=== PATIENT | male | born 1995 | race Hispanic/Latino ===

== ENCOUNTER 2019-04-18 14:52 | Emergency (ER) | payer BC, OTHER ==
[2019-04-18] MEDS ORDERED: SODIUM CHLORIDE 0.9% 1000ML 1,000 ML IV ONE ×2 (15:10→16:46)
[2019-04-18] MEDS ORDERED: M.V.I. IV [ADULT] 10 ML VIAL IV ONE (15:11)
[2019-04-18] MEDS ORDERED: THIAMINE HCL 100 MG/ML 2ML VIAL ONE (15:11)
[2019-04-18] MEDS ORDERED: FOLIC ACID 5 MG/ML 10 ML VIAL ONE (15:16)
[2019-04-18] MEDS ORDERED: ONDANSETRON HCL 4 MG/2 ML VIAL ONE (15:22)
[2019-04-18 15:25] LABS: EOSINOPHILS % (AUTO) 3.6 % (0.0-8.0); HEMATOCRIT 45.8 % (42-54); LYMPHOCYTES % (AUTO) 36.4 % (21.0-51.0); MEAN CORPUSCULAR HEMOGLOBIN 31.3 pg (27.0-33.0); MEAN CORPUSCULAR HGB CONC 34.8 g/dL (32.0-36.0); MONOCYTES % (AUTO) 8.9 % (3.0-13.0); NEUTROPHILS % (AUTO) 50.1 % (40.0-77.0); PLATELET COUNT (AUTO) 226 K/uL (130-400); RED BLOOD CELL COUNT(AUTO) 5.08 MIL/uL (4.50-6.20); WHITE BLOOD COUNT (AUTO) 5.1 K/uL (4.8-10.8)
[2019-04-18 15:44] LABS: CARBON DIOXIDE 28 mmol/L (21-32); CHLORIDE 102 mmol/L (101-111); CREATININE 1.4 mg/dL (0.5-1.5); GLOMERULAR FILTR. RATE CALC 66 mL/min (>60); GLUCOSE,RANDOM 100 mg/dL (70-105); POTASSIUM 3.4 mmol/L (3.5-5.1); SODIUM SERUM 141 mmol/L (136-145); UREA NITROGEN, BLOOD 21 mg/dL (7-18)
[2019-04-18 15:45] LABS: INR 0.95 (0.85-1.15); PARTIAL THROMBOPLASTIN TIME 27.1 SEC (26.3-35.5)
[2019-04-18 15:48] LABS: APPEARANCE,URINE Clear (CLEAR); BILIRUBIN,URINE Negative (NEGATIVE); COLOR,URINE Yellow (YELLOW); GLUCOSE, URINE (UA) Negative (NEGATIVE); KETONES,URINE Negative (NEGATIVE); LEUKOCYTE ESTERASE ,URINE Negative (NEGATIVE); NITRATE,URINE Negative (NEGATIVE); OCCULT BLOOD,URINE Negative (NEGATIVE); PROTEIN,URINE Negative (NEGATIVE)
[2019-04-18 15:57] LABS: ALANINE AMINOTRANSFERASE 23 U/L (12-78); ALBUMIN 4.6 g/dL (3.5-5.0); ALCOHOL, BLOOD < 3 mg/dL (0-10); AMYLASE 49 U/L (25-115); ASPARTATE AMINOTRANSFERASE 22 U/L (10-37); BILIRUBIN,TOTAL 0.3 mg/dL (0.2-1.0); LIPASE 128 U/L (114-286); TOTAL PROTEIN, SERUM 8.2 g/dL (6.0-8.3)
[2019-04-18 15:58] LABS: AMPHET/METH SCREEN,URINE NEGATIVE (NEGATIVE); BARBITURATE SCREEN, URINE NEGATIVE (NEGATIVE); BENZODIAZEPINES SCREEN,URINE NEGATIVE (NEGATIVE); CANNABINOID SCREEN,URINE NEGATIVE (NEGATIVE); COCAINE SCREEN,URINE NEGATIVE (NEGATIVE); OPIATE SCREEN,URINE NEGATIVE (NEGATIVE); PHENCYCLIDINE SCREEN,URINE NEGATIVE (NEGATIVE)
[2019-04-18 16:00] LABS: SALICYLATE < 2.8 mg/dL (2.8-20.0)
[2019-04-18 16:01] LABS: CREATINE KINASE, TOTAL 706 U/L (21-232)
[2019-04-18 16:02] LABS: ACETAMINOPHEN < 1 mcg/mL (10-29)
== END 2019-04-18 17:38 | disposition home or self-care (01) ==
LOC: EDH 14:52
DX: E86.0 Dehydration (principal); F10.239 Alcohol dependence with withdrawal, unspecified; Z72.0 Tobacco use; Y90.9 Presence of alcohol in blood, level not specified
CPT/HCPCS: 36415; 71045; 80053; 80305; 81003; 82150; 82550; 83690; 83874 ×2; 84484; 85025; 85610; 85730; 93005; 96361; 96374; 99285; G0480 ×2; G0481; J2405; J3411; J3490; J7030 ×2

== ENCOUNTER 2020-03-16 11:32 | Emergency (ER) | payer BC, OTHER ==
[2020-03-16 13:02] LABS: APPEARANCE,URINE Clear (CLEAR); BILIRUBIN,URINE Negative (NEGATIVE); COLOR,URINE Yellow (YELLOW); GLUCOSE, URINE (UA) Negative (NEGATIVE); KETONES,URINE Trace mg/dL (NEGATIVE); LEUKOCYTE ESTERASE ,URINE Negative (NEGATIVE); NITRATE,URINE Negative (NEGATIVE); OCCULT BLOOD,URINE Negative (NEGATIVE); PROTEIN,URINE Negative (NEGATIVE)
[2020-03-16 13:04] LABS: BASOPHILS % (AUTO) 0.5 % (0.0-5.0); EOSINOPHILS % (AUTO) 1.7 % (0.0-8.0); HEMATOCRIT 42.8 % (42-54); LYMPHOCYTES % (AUTO) 25.3 % (21.0-51.0); MEAN CORPUSCULAR HEMOGLOBIN 29.7 pg (27.0-33.0); MEAN CORPUSCULAR HGB CONC 34.8 g/dL (32.0-36.0); MEAN CORPUSCULAR VOLUME 85.3 fL (79-99); MONOCYTES % (AUTO) 8.6 % (3.0-13.0); NEUTROPHILS % (AUTO) 63.7 % (40.0-77.0); PLATELET COUNT (AUTO) 206 K/uL (130-400); RED BLOOD CELL COUNT(AUTO) 5.02 MIL/uL (4.50-6.20); RED CELL DISTRIBUTION WIDTH 11.7 % (11.0-15.5); WHITE BLOOD COUNT (AUTO) 6.7 K/uL (4.8-10.8)
[2020-03-16 13:18] LABS: ALBUMIN 4.6 g/dL (3.5-5.0); BILIRUBIN,TOTAL 0.4 mg/dL (0.2-1.0); CREATININE 1.3 mg/dL (0.5-1.5); POTASSIUM 3.7 mmol/L (3.5-5.1); TOTAL PROTEIN, SERUM 7.8 g/dL (6.0-8.3)
== END 2020-03-16 13:37 | disposition home or self-care (01) ==
LOC: EDH 11:32
DX: K59.00 Constipation, unspecified (principal); R11.0 Nausea; Z72.0 Tobacco use
CPT/HCPCS: 36415; 76770; 80053; 81003; 85025

== ENCOUNTER 2022-01-01 15:06 | Emergency (ER) | payer OTHER ==
[~2022-01-01] VITALS: Ht 172.7 cm; Wt 74.8 kg
[2022-01-01 15:32] LABS: BASOPHILS % (AUTO) 0.3 % (0.0-5.0); EOSINOPHILS % (AUTO) 9.4 % (0.0-8.0); HEMATOCRIT 48.1 % (42-54); LYMPHOCYTES % (AUTO) 25.7 % (21.0-51.0); MEAN CORPUSCULAR HEMOGLOBIN 30.7 pg (27.0-33.0); MEAN CORPUSCULAR HGB CONC 34.9 g/dL (32.0-36.0); MEAN CORPUSCULAR VOLUME 87.8 fL (79-99); MONOCYTES % (AUTO) 6.8 % (3.0-13.0); NEUTROPHILS % (AUTO) 57.4 % (40.0-77.0); PLATELET COUNT (AUTO) 211 K/uL (130-400); RED BLOOD CELL COUNT(AUTO) 5.48 MIL/uL (4.50-6.20); RED CELL DISTRIBUTION WIDTH 12.3 % (11.0-15.5); WHITE BLOOD COUNT (AUTO) 6.9 K/uL (4.8-10.8)
[2022-01-01 15:37] LABS: APPEARANCE,URINE CLEAR (CLEAR); BILIRUBIN,URINE NEGATIVE (NEGATIVE); COLOR,URINE YELLOW (YELLOW); GLUCOSE, URINE (UA) NEGATIVE (NEGATIVE); KETONES,URINE NEGATIVE (NEGATIVE); LEUKOCYTE ESTERASE ,URINE NEGATIVE (NEGATIVE); NITRATE,URINE NEGATIVE (NEGATIVE); OCCULT BLOOD,URINE TRACE-INTACT (NEGATIVE); PROTEIN,URINE NEGATIVE (NEGATIVE); UROBILINOGEN,URINE 0.2 mg/dL (0.2-1.0)
[2022-01-01 15:54] LABS: CREATININE 1.4 mg/dL (0.5-1.5)
[2022-01-01 15:59] LABS: ALBUMIN 4.3 g/dL (3.5-5.0); BILIRUBIN,TOTAL 0.6 mg/dL (0.2-1.0); TOTAL PROTEIN, SERUM 8.2 g/dL (6.0-8.3)
[2022-01-01 16:04] LABS: BACTERIA,URINE Rare /HPF (None Seen); RBC,URINE 0-1 /HPF (0-1); SQUAMOUS EPITHELIAL CELL,UR Rare /HPF (0-2); WBC,URINE 0-1 /HPF (0-1)
[2022-01-01] MEDS ORDERED: KETOROLAC 15MG/ML VIAL (15MG/ML) IV ONE (17:00)
[2022-01-01] MEDS ORDERED: 0.9%NACL 1000ML 1,000 ML IV ONE (17:00)
[2022-01-01 18:47] VITALS: BP 121/83
== END 2022-01-01 18:52 | disposition home or self-care (01) ==
LOC: EDH 15:06
DX: R10.32 Left lower quadrant pain (principal)
CPT/HCPCS: 36415; 74176; 80053; 81001; 83690; 85025; 96374; 99284; J1885

== ENCOUNTER 2022-06-19 07:45 | Emergency (ER) | payer OTHER ==
[~2022-06-19] VITALS: Ht 152.4 cm; Wt 77.1 kg
[2022-06-19 08:55] LABS: BASOPHILS % (AUTO) 0.4 % (0.0-5.0); EOSINOPHILS % (AUTO) 3.3 % (0.0-8.0); HEMATOCRIT 43.4 % (42-54); LYMPHOCYTES % (AUTO) 27.1 % (21.0-51.0); MEAN CORPUSCULAR HEMOGLOBIN 30.6 pg (27.0-33.0); MEAN CORPUSCULAR VOLUME 87.5 fL (79-99); MONOCYTES % (AUTO) 8.9 % (3.0-13.0); PLATELET COUNT (AUTO) 220 K/uL (130-400); RED BLOOD CELL COUNT(AUTO) 4.96 MIL/uL (4.50-6.20); RED CELL DISTRIBUTION WIDTH 12.5 % (11.0-15.5); WHITE BLOOD COUNT (AUTO) 7.3 K/uL (4.8-10.8)
[2022-06-19 09:08] LABS: ALBUMIN 3.8 g/dL (3.5-5.0); CREATININE 1.5 mg/dL (0.5-1.5); POTASSIUM 3.7 mmol/L (3.5-5.1); TOTAL PROTEIN, SERUM 7.1 g/dL (6.0-8.3)
[2022-06-19 10:08] VITALS: BP 125/75
[2022-06-19] MEDS: PANTOPRAZOLE 40 MG/VIAL ONE (10:14)
[2022-06-19] MEDS ORDERED: PANTOPRAZOLE 40 MG/VIAL IVP ONE (10:30)
== END 2022-06-19 10:24 | disposition home or self-care (01) ==
LOC: EDH 07:45
DX: T78.49XA Other allergy, initial encounter (principal); K21.9 Gastro-esophageal reflux disease without esophagitis; X58.XXXA Exposure to other specified factors, initial encounter
CPT/HCPCS: 99283; 96374; 80053; 85025; 36415; C9113

== ENCOUNTER 2025-06-19 13:08 | Emergency (ER) | payer SELFPAY ==
[~2025-06-19] VITALS: Ht 172.7 cm; Wt 77.1 kg
--- NOTE | 2025-06-19 14:39 | HMCIMG ---
KNEE 3VWS LT REASON: pain, injury TECHNIQUE: 3 views were obtained. FINDINGS: There is no evidence of fracture or dislocation. There is no joint effusion. The soft tissues appear unremarkable. There is no evidence of a radiopaque foreign body. IMPRESSION: No acute findings. No acute fracture or dislocation
--- NOTE | 2025-06-19 15:02 | ERN ---
General Chief Complaint: Knee Injury/Swelling Stated Complaint: KNEE PAIN Time Seen by MD: 13:22 Time Seen by Midlevel: 13:22 Source: patient History of Present Illness Initial Comments 29-year-old male presents to the emergency department due to left knee pain. Patient reports his boot got caught on the side of the truck and felt his knee graft to the left side. Denies any further injuries. Unable to bear weight or ambulate due to pain. The patient denies significant past medical history. Allergies: Coded Allergies: No Known Allergies (Unverified Allergy, Unknown, 04/18/19) Past Medical History Past Medical History: No Pertinent History Past Surgical History: None Surgical History Other: JAW Social History Social History: Negative ROS Dictation Constitutional: Negative for fever,chills, and weight loss Eyes: Negative for injury, pain,redness, and discharge ENT: Negative for injury,pain or swelling Cardiovascular: Negative for chest pain, palpitations, and edema Respiratory: Negative for shortness of breath, cough, and wheezing, Abdomen/GI: Negative for abdominal pain, nausea, vomiting, diarrhea, and constipation Back: Negative for injury and pain : Negative for painful urination, bleeding or discharge MS/Extremity: Positive for left knee pain Negative for injury and deformity Skin: Negative for rash, and discoloration Neuro: Negative for headache, weakness, numbness, tingling, and seizure Psych: Negative for suicide ideation, homicidal ideation, and hallucinations Physical Exam Physical Exam Dictation General: awake, alert, no acute distress Head/Face: Normocephalic, atraumatic Eyes: PERRL, EOMI, normal conjunctiva ENT: oral cavity clear, oral mucosa moist Neck: Supple, normal range of motion Cardiovascular: RRR, normal S1/S2 Respiratory: CTAB, no respiratory distress Skin: Warm, dry, normal turgor, no rash MS/Extremity: Pulses equal, no cyanosis, neurovascular intact, FROM. Left knee tenderness along the lateral aspect, no swelling noted, no ecchymosis noted, limited range of motion restricted by pain. Neuro: COAx4, GCS 15, strength 5/5, CN 2-12 intact, normal cerebellar exam Psych: Normal behavior, mood, and affect normal Results EKG/XRAY/US/CT/MRI X-RAY Comment REASON: pain, injury ORDERING PHYSICIAN: ALMERAZ,ERWIN PAC PROCEDURE: KNEE 3V LT - KNEE 3VWS LT KNEE 3VWS LT REASON: pain, injury TECHNIQUE: 3 views were obtained. FINDINGS: There is no evidence of fracture or dislocation. There is no joint effusion. The soft tissues appear unremarkable. There is no evidence of a radiopaque foreign body. IMPRESSION: No acute findings. No acute fracture or dislocation DICTATED BY: CUAUHTEMOC LIND MD DATE: 06/19/251435 MDM MDM: Differential diagnosis: Fracture, sprain, strain Rationale: 29-year-old male presents to the emergency department due to left knee pain. Patient reports his boot got caught on the side of the truck and felt his knee graft to the left side. Denies any further injuries. Unable to bear weight or ambulate due to pain. The patient denies significant past medical history. Per physical examination left knee tenderness along the lateral aspect, no swelling noted, no ecchymosis noted, limited range of motion restricted by pain. X-rays obtained with no acute fractures, dislocations or acute findings. Patient received ketorolac in the ED. Patient was educated on findings, diagnosis. Advised to follow up with PCP and orthopedic. Patient placed on a knee immobilizer. Return to the emergency department if any worsening symptoms. Patient verbalized understanding. Patient stable for discharge. There are no social concerns with this patient. I independently interpreted the test that were performed, results were reviewed by me and considered findings on radiology if ordered. Medical management and examination interpretation discussions were had by me with other qualified healthcare professionals as indicated for the patient's care. ED Course Orders Procedure Category Date Status Time Knee 3vws Lt RAD 06/19/25 Resulted 13:36 Ketorolac PHA 06/19/25 Complete Tromethamine 15mg/Ml 14:30 Knee Immobilizer BRYON 06/19/25 Complete 15:00 Current Medications Medications (Trade) Dose Ordered Sig/Jewel Route PRN Reason Start Time Stop Time Status Last Admin Dose Admin Ketorolac Tromethamine (toRADol) 15 mg ONCE ONCE IM 06/19/25 14:30 06/19/25 14:31 DC 06/19/25 14:12 Vital Signs Date Time Temp Pulse Resp B/P (MAP) Pulse Ox O2 Delivery O2 Flow Rate FiO2 06/19/25 15:13 99.3 84 18 106/56 99 Room Air* 0 21 06/19/25 13:47 99.3 97 22 109/56 97 Room Air* 0 21 06/19/25 13:16 98.8 87 18 114/59 98 Room Air* 0 21 06/19/25 13:11 98.8 87 18 114/59 98 Room Air 0 DX & DISP Disposition: Discharge Departure Impression: Primary Impression: Knee sprain Additional Impressions: Knee injury, Knee pain Condition: Stable Scripts Meloxicam (Meloxicam) 7.5 Mg Tablet 1 TAB PO DAILY for 7 Days, #7 TAB 0 Refills Prov: ERWIN XIAO 06/19/25 Additional Instructions: Discharge home. Rest. Follow up with primary care DrBernardino in 24 hours. Return to the ER for any acute changes or worsening symptoms. If any medications were prescribed take as directed. Okay to continue home medications unless otherwise discussed during your visit in the emergency room today. Patient was also advised to follow-up with primary care physician in 1 to 2 days for continued monitoring. Referrals: SELF,REFERRAL (PCP) MARIAH TEAGUE MD,KERMIT GILMORE MD, MD,GABE VENTURA MD I performed the substantive portion of the visit. I have reviewed and personally made and approve the management plan that is documented in the notes by myself or the JEANNETTE. I acknowledge full responsibility for the patient's management plan. ERWIN XIAO Jun 19, 2025 15:02
[2025-06-19 15:13] VITALS: BP 106/56; PULSE 84; RESP 18; TEMP 99.3; O2SAT 99
--- NOTE | 2025-06-19 15:14 | NUR ---
PER ER FRAUD PREVENTION ANALYST, KNEE IMMOBILIZER APPLIED TO LEFT KNEE. PEDAL PULSE PRESENT AND DISTAL CAPILLARY REFILL IS NORMAL. PATIENT EDUCATED ON KNEE IMMOBILIZER USE, PATIENT VERBALIZES UNDERSTANDING.
[2025-06-19] MEDS ORDERED: MELO-106 PO (21:30)
== END 2025-06-19 15:23 | disposition home or self-care (01) ==
LOC: EDH 13:08
DX: S83.92XA Sprain of unspecified site of left knee, initial encounter (principal); V04.99XA Pedestrian with other conveyance injured in collision with heavy transport vehicle or bus, unspecified whether traffic or nontraffic accident, initial encounter; Y93.89 Activity, other specified; Y92.89 Other specified places as the place of occurrence of the external cause; Y99.8 Other external cause status
CPT/HCPCS: 99283; 29505; 73562; 96372; J1885